=== PATIENT | female | born 1940 | race Caucasian/White ===

== ENCOUNTER 2021-11-30 03:09 | Inpatient (IN) | payer MEDICARE ==
[~2021-11-30] VITALS: Ht 160 cm; Wt 58.5 kg
[2021-11-30 03:49] LABS: *BILIRUBIN,URIN NEGATIVE (NEGATIVE); *BLOOD, URINE 1+ (NEGATIVE); *CLARITY,URINE CLOUDY (CLEAR); *COLOR,URINE LIGHT YELLOW (YELLOW); *KETONES,URINE NEGATIVE (NEGATIVE); *UROBILINOGEN,URINE 0.2 E.U./dl (NORMAL); LEUKOCYTE ESTERASE ,URINE 1+ (NEGATIVE); NITRITE, URINE POSITIVE (NEGATIVE); UGLUCOSE NEGATIVE (NEGATIVE)
[2021-11-30] MEDS ORDERED: OLME20TA13 PO (03:50)
[2021-11-30] MEDS ORDERED: ROSU5TAB PO (03:50)
[2021-11-30] MEDS ORDERED: GLIP5TAB13 PO (03:50)
[2021-11-30] MEDS ORDERED: PIOG15TA8 PO (03:50)
[2021-11-30] MEDS ORDERED: FLUT16SP16 NS (03:50)
[2021-11-30 03:56] LABS: MEAN CORPUSCULAR HEMOGLOBIN 31.9 uug (24.7-32.8); MEAN CORPUSCULAR VOLUME 95.3 fL (75.5-95.3); PLATELET COUNT (AUTO) 199 K/uL (179-408)
[2021-11-30 03:59] LABS: BACTERIA,URINE MANY /HPF (NONE SEEN); RBC,URINE 50-80 /HPF (0-3); SQUAMOUS EPITHELIAL CELL,UR FEW /HPF (NONE SEEN)
[2021-11-30 04:06] LABS: *AMPHETAMINE, URINE NEGATIVE (NEGATIVE); *CANNABINOID, URINE NEGATIVE (NEGATIVE); *COCCAINE, URINE NEGATIVE (NEGATIVE); *OPIATE, URINE NEGATIVE (NEGATIVE); *PHENCYCLIDINE SCREEN,URINE NEGATIVE (NEGATIVE)
[2021-11-30 04:13] LABS: ALANINE AMINOTRANSFERASE 29 U/L (14-59); ALKALINE PHOSPHATASE 59 U/L (50-136); ASPARTATE AMINOTRANSFERASE 22 U/L (15-37); BILIRUBIN,DIRECT 0.2 mg/dL (0.0-0.2); BILIRUBIN,TOTAL 0.6 mg/dL (0.2-1.0); CARBON DIOXIDE 28 mmol/L (21-32); CHLORIDE 105 mmol/L (98-107); CREATININE 0.9 mg/dL (0.6-1.3); GLUCOSE 140 mg/dL (74-106); POTASSIUM 3.3 mmol/L (3.5-5.1); TOTAL PROTEIN, SERUM 7.2 g/dL (6.4-8.2); UREA NITROGEN, BLOOD 15 mg/dL (7-18)
[2021-11-30 04:15] LABS: ETHANOL < 3 MG/DL (0-0)
[2021-11-30 04:16] LABS: ACETAMINOPHEN < 2.0 ug/mL (10-30)
[2021-11-30] MEDS ORDERED: NITROFURANTOIN/NITROFURAN MAC 100 MG CAPSULE PO ONE (04:30)
[2021-11-30] MEDS ORDERED: POTASSIUM CHLORIDE 20 MEQ TAB.PRT.SR PO ONE (05:15)
[2021-11-30] MEDS ORDERED: MAG HYDROX/AL HYDROX/SIMETH 30 ML LIQUID UDC PO PRN (06:30)
[2021-11-30] MEDS ORDERED: ACETAMINOPHEN 325 MG TABLET PO PRN (06:30)
[2021-11-30] MEDS ORDERED: MAGNESIUM HYDROXIDE 30 ML LIQUID UDC PO PRN (06:30)
[2021-11-30] MEDS ORDERED: BLOOD SUGAR DIAGNOSTIC 1 EACH STRIP VI ONE (07:15)
[2021-11-30 07:30] VITALS: BP 155/51
[2021-11-30] MEDS: NICOTINE 21 MG/24HR PATCH TD SCH (08:41)
[2021-11-30] MEDS: risperiDONE 0.5 MG TABLET PO SCH ×2 (09:52→20:07)
[2021-11-30] MEDS ORDERED: ROSU10TA29 PO (13:41)
[2021-11-30] MEDS ORDERED: PIOG30TA71 PO (13:41)
[2021-11-30] MEDS ORDERED: OLME20TA23 PO (13:41)
[2021-11-30] MEDS ORDERED: GLIP2.5T3 PO (13:41)
[2021-11-30 16:00] VITALS: BP 104/62
[2021-11-30 20:00] VITALS: BP 120/52
[2021-11-30] MEDS: LORAZEPAM 1 MG TABLET PO PRN (20:07)
[2021-11-30] MEDS: ATORVASTATIN 20 MG TABLET PO SCH (20:58)
[2021-11-30] MEDS: FLUTICASONE PROP NASAL SPRAY 16 GM BOTTLE NS PRN (20:59)
[2021-12-01] MEDS: ZOLPIDEM 5 MG TABLET PO PRN (00:22)
[2021-12-01 07:50] VITALS: BP 165/72
[2021-12-01 07:58] LABS: MAGNESIUM 2.1 mg/dL (1.8-2.4); PHOSPHOROUS 3.8 mg/dL (2.5-4.9)
[2021-12-01 08:20] LABS: THYROID STIMULATING HORMONE 1.264 mIU/mL (0.358-3.740)
[2021-12-01] MEDS: glipiZIDE XL 2.5 MG TABCR PO SCH (08:45)
[2021-12-01] MEDS: PIOGLITAZONE HCL 15 MG TABLET PO SCH (08:45)
[2021-12-01] MEDS: NICOTINE 21 MG/24HR PATCH TD SCH (08:45)
[2021-12-01] MEDS: LOSARTAN POTASSIUM 50 MG TABLET PO SCH (08:46)
[2021-12-01] MEDS: risperiDONE 0.5 MG TABLET PO SCH ×2 (08:46→20:15)
[2021-12-01] MEDS ORDERED: PIOGLITAZONE HCL 30 MG PO SCH (09:00)
[2021-12-01 17:51] VITALS: BP 127/70
[2021-12-01] MEDS: EZETIMIBE 10 MG TABLET PO SCH (20:15)
[2021-12-01] MEDS: ATORVASTATIN 20 MG TABLET PO SCH (20:15)
[2021-12-01] MEDS: DONEPEZIL 10 MG TABLET PO SCH (20:16)
[2021-12-01] MEDS: LORAZEPAM 1 MG TABLET PO PRN (20:18)
[2021-12-01 20:27] VITALS: BP 107/42
[2021-12-01] MEDS ORDERED: DONEPEZIL 5 MG TABLET PO SCH ×2 (21:00)
[2021-12-02 07:30] VITALS: BP 160/59
[2021-12-02] MEDS: LOSARTAN POTASSIUM 50 MG TABLET PO SCH (09:00)
[2021-12-02] MEDS: glipiZIDE XL 2.5 MG TABCR PO SCH (09:01)
[2021-12-02] MEDS: risperiDONE 0.5 MG TABLET PO SCH ×2 (09:02→21:46)
[2021-12-02] MEDS: NICOTINE 21 MG/24HR PATCH TD SCH (09:03)
[2021-12-02] MEDS: PIOGLITAZONE HCL 15 MG TABLET PO SCH (09:03)
[2021-12-02 16:00] VITALS: BP 154/62
[2021-12-02 20:00] VITALS: BP 113/56
[2021-12-02] MEDS: ATORVASTATIN 20 MG TABLET PO SCH (21:46)
[2021-12-02] MEDS: EZETIMIBE 10 MG TABLET PO SCH (21:46)
[2021-12-02] MEDS: ZOLPIDEM 5 MG TABLET PO PRN (21:46)
[2021-12-02] MEDS: DONEPEZIL 10 MG TABLET PO SCH (21:46)
[2021-12-03 08:15] VITALS: BP 145/65
[2021-12-03] MEDS: LOSARTAN POTASSIUM 50 MG TABLET PO SCH (08:37)
[2021-12-03] MEDS: PIOGLITAZONE HCL 15 MG TABLET PO SCH (08:37)
[2021-12-03] MEDS: risperiDONE 0.5 MG TABLET PO SCH ×2 (08:37→20:56)
[2021-12-03] MEDS: NICOTINE 21 MG/24HR PATCH TD SCH (08:37)
[2021-12-03] MEDS: glipiZIDE XL 2.5 MG TABCR PO SCH (08:37)
[2021-12-03 14:41] VITALS: BP 132/63
[2021-12-03 17:04] VITALS: BP 132/63
[2021-12-03 20:25] VITALS: BP 134/58
[2021-12-03] MEDS: EZETIMIBE 10 MG TABLET PO SCH (20:56)
[2021-12-03] MEDS: ATORVASTATIN 20 MG TABLET PO SCH (20:56)
[2021-12-03] MEDS: DONEPEZIL 10 MG TABLET PO SCH (20:56)
[2021-12-04 08:07] VITALS: BP 150/63
[2021-12-04] MEDS: risperiDONE 0.5 MG TABLET PO SCH ×2 (08:09→21:00)
[2021-12-04] MEDS: glipiZIDE XL 2.5 MG TABCR PO SCH (08:09)
[2021-12-04] MEDS: NICOTINE 21 MG/24HR PATCH TD SCH (08:09)
[2021-12-04] MEDS: PIOGLITAZONE HCL 15 MG TABLET PO SCH (08:09)
[2021-12-04] MEDS: LOSARTAN POTASSIUM 50 MG TABLET PO SCH (08:10)
[2021-12-04 16:15] VITALS: BP 130/63
[2021-12-04 20:23] VITALS: BP 156/68
[2021-12-04] MEDS: DONEPEZIL 10 MG TABLET PO SCH (21:00)
[2021-12-04] MEDS: ATORVASTATIN 20 MG TABLET PO SCH (21:00)
[2021-12-04] MEDS: EZETIMIBE 10 MG TABLET PO SCH (21:00)
[2021-12-04] MEDS: ZOLPIDEM 5 MG TABLET PO PRN (21:08)
[2021-12-05 08:00] VITALS: BP 141/54
[2021-12-05] MEDS: PIOGLITAZONE HCL 15 MG TABLET PO SCH (09:19)
[2021-12-05] MEDS: risperiDONE 0.5 MG TABLET PO SCH ×2 (09:20→20:40)
[2021-12-05] MEDS: LOSARTAN POTASSIUM 50 MG TABLET PO SCH (09:20)
[2021-12-05] MEDS: METOPROLOL TARTRATE 25 MG TABLET PO SCH ×2 (09:20→20:40)
[2021-12-05] MEDS: glipiZIDE XL 2.5 MG TABCR PO SCH (09:20)
[2021-12-05] MEDS: NICOTINE 21 MG/24HR PATCH TD SCH (09:21)
[2021-12-05 16:52] VITALS: BP 142/63
[2021-12-05 20:23] VITALS: BP 153/49
[2021-12-05] MEDS: ATORVASTATIN 20 MG TABLET PO SCH (20:39)
[2021-12-05] MEDS: EZETIMIBE 10 MG TABLET PO SCH (20:39)
[2021-12-05] MEDS: DONEPEZIL 10 MG TABLET PO SCH (20:40)
[2021-12-05] MEDS: LORAZEPAM 1 MG TABLET PO PRN (21:20)
[2021-12-05] MEDS: ZOLPIDEM 5 MG TABLET PO PRN (21:45)
[2021-12-06 07:30] VITALS: BP 134/60
[2021-12-06] MEDS: PIOGLITAZONE HCL 15 MG TABLET PO SCH (08:29)
[2021-12-06] MEDS: LOSARTAN POTASSIUM 50 MG TABLET PO SCH (08:29)
[2021-12-06] MEDS: risperiDONE 0.5 MG TABLET PO SCH ×2 (08:29→20:50)
[2021-12-06] MEDS: glipiZIDE XL 2.5 MG TABCR PO SCH (08:30)
[2021-12-06] MEDS: NICOTINE 21 MG/24HR PATCH TD SCH (08:30)
[2021-12-06] MEDS: METOPROLOL TARTRATE 25 MG TABLET PO SCH ×2 (09:31→20:51)
[2021-12-06] MEDS: CEphaleXIN 500 MG CAPSULE PO SCH ×2 (13:57→20:50)
[2021-12-06 16:00] VITALS: BP 102/39
[2021-12-06 20:00] VITALS: BP 119/49
[2021-12-06] MEDS: ATORVASTATIN 20 MG TABLET PO SCH (20:49)
[2021-12-06] MEDS: MELATONIN 3 MG TABLET PO SCH (20:50)
[2021-12-06] MEDS: DONEPEZIL 10 MG TABLET PO SCH (20:50)
[2021-12-06] MEDS: EZETIMIBE 10 MG TABLET PO SCH (20:51)
[2021-12-07] MEDS: CEphaleXIN 500 MG CAPSULE PO SCH ×3 (05:42→21:39)
[2021-12-07 07:30] VITALS: BP 121/46
[2021-12-07] MEDS: NICOTINE 21 MG/24HR PATCH TD SCH (08:30)
[2021-12-07] MEDS: METOPROLOL TARTRATE 25 MG TABLET PO SCH ×2 (08:33→20:41)
[2021-12-07] MEDS: risperiDONE 0.5 MG TABLET PO SCH ×2 (08:33→20:38)
[2021-12-07] MEDS: PIOGLITAZONE HCL 15 MG TABLET PO SCH (08:33)
[2021-12-07] MEDS: glipiZIDE XL 2.5 MG TABCR PO SCH (08:33)
[2021-12-07] MEDS: LOSARTAN POTASSIUM 50 MG TABLET PO SCH (08:33)
[2021-12-07 16:00] VITALS: BP 127/66
[2021-12-07 20:00] VITALS: BP 114/51
[2021-12-07] MEDS: MELATONIN 3 MG TABLET PO SCH (20:38)
[2021-12-07] MEDS: DONEPEZIL 10 MG TABLET PO SCH (20:38)
[2021-12-07] MEDS: EZETIMIBE 10 MG TABLET PO SCH (20:38)
[2021-12-07] MEDS: ATORVASTATIN 20 MG TABLET PO SCH (21:00)
[2021-12-07] MEDS: ZOLPIDEM 5 MG TABLET PO PRN (21:39)
[2021-12-08] MEDS: CEphaleXIN 500 MG CAPSULE PO SCH ×2 (06:43→13:15)
[2021-12-08 07:30] VITALS: BP 145/62
[2021-12-08 08:51] VITALS: BP 145/62
[2021-12-08] MEDS: LOSARTAN POTASSIUM 50 MG TABLET PO SCH (08:51)
[2021-12-08] MEDS: risperiDONE 0.5 MG TABLET PO SCH (08:51)
[2021-12-08] MEDS: METOPROLOL TARTRATE 25 MG TABLET PO SCH (08:51)
[2021-12-08] MEDS: PIOGLITAZONE HCL 15 MG TABLET PO SCH (08:51)
[2021-12-08] MEDS: NICOTINE 21 MG/24HR PATCH TD SCH (08:51)
[2021-12-08] MEDS: FLUTICASONE PROP NASAL SPRAY 16 GM BOTTLE NS PRN (08:56)
[2021-12-08] MEDS: glipiZIDE XL 2.5 MG TABCR PO SCH (08:59)
== END 2021-12-08 15:58 | DRG 885 ==
LOC: ER 03:18 → GPS 06:11
PROVIDERS: ADMIT Psychiatry & Neurology Psychiatry; ATTEND Internal Medicine
DX: F29 Unspecified psychosis not due to a substance or known physiological condition (principal); N39.0 Urinary tract infection, site not specified; F03.91 Unspecified dementia, unspecified severity, with behavioral disturbance; E46 Unspecified protein-calorie malnutrition; D68.59 Other primary thrombophilia; E87.6 Hypokalemia; F17.210 Nicotine dependence, cigarettes, uncomplicated; I10 Essential (primary) hypertension; E78.5 Hyperlipidemia, unspecified; Z90.710 Acquired absence of both cervix and uterus; Z68.22 Body mass index [BMI] 22.0-22.9, adult; Z74.09 Other reduced mobility; E11.9 Type 2 diabetes mellitus without complications; Z79.84 Long term (current) use of oral hypoglycemic drugs; Z79.899 Other long term (current) drug therapy; Z60.2 Problems related to living alone
CPT/HCPCS: 36415; 83735; 84100; 84443; 85025; 87086; 93005; 97161; G0480; J3535